=== PATIENT | female | born 1950 | race Caucasian/White ===

== ENCOUNTER → 2019-12-08 | Outpatient (CLI) | payer MEDICARE | END | disposition home or self-care (01) | LOC: RAH 08:34 | PROVIDERS: ATTEND Orthopaedic Surgery | DX: M16.12 Unilateral primary osteoarthritis, left hip (principal) | CPT/HCPCS: 73721 ==

== ENCOUNTER → 2020-04-28 | Outpatient (CLI) | payer MEDICARE ==
[~2020-04-28] VITALS: Ht 165.1 cm; Wt 98.9 kg
[~2020-04-28] MED LIST: CLINDAMYCIN 900 MG/D5% WATER 50 ML IV SCH
[2020-04-28 11:14] LABS: APPEARANCE,URINE Clear (CLEAR); BILIRUBIN,URINE Negative (NEGATIVE); COLOR,URINE Yellow (YELLOW); GLUCOSE, URINE (UA) Negative (NEGATIVE); KETONES,URINE Negative (NEGATIVE); LEUKOCYTE ESTERASE ,URINE Negative (NEGATIVE); NITRATE,URINE Negative (NEGATIVE); OCCULT BLOOD,URINE Negative (NEGATIVE); PROTEIN,URINE Negative (NEGATIVE); UROBILINOGEN,URINE 0.2 mg/dL (0.2-1.0)
[2020-04-28 11:19] LABS: CREATININE 0.8 mg/dL (0.5-1.5); EOSINOPHILS % (AUTO) 6.3 % (0.0-8.0); HEMATOCRIT 40.5 % (36-48); LYMPHOCYTES % (AUTO) 33.4 % (21.0-51.0); MEAN CORPUSCULAR HEMOGLOBIN 27.9 pg (27.0-33.0); MEAN CORPUSCULAR HGB CONC 31.6 g/dL (32.0-36.0); MEAN CORPUSCULAR VOLUME 88.4 fL (79-99); MONOCYTES % (AUTO) 8.6 % (3.0-13.0); NEUTROPHILS % (AUTO) 50.7 % (40.0-77.0); PLATELET COUNT (AUTO) 205 K/uL (130-400); POTASSIUM 4.4 mmol/L (3.5-5.1); RED BLOOD CELL COUNT(AUTO) 4.58 MIL/uL (4.00-5.50); RED CELL DISTRIBUTION WIDTH 13.6 % (11.0-15.5)
[2020-04-28 12:28] LABS: BASOPHILS % (MANUAL) 2 % (0-2); EOSINOPHILS % (MANUAL) 7 % (1-6); LYMPHOCYTES % (MANUAL) 28 % (22-44); MAN.DIFF COMMENT-IMPRESSION MANUAL DIFFERENTIAL; MONOCYTES % (MANUAL) 6 % (2-9); REACTIVE LYMPHOCYTES 2 % (0-0); SEGMENTED NEUTROPHILS % 55 % (40-70)
[2020-04-28 12:29] LABS: PLATELET MORPHOLOGY COMMENT ADEQUATE
[2020-04-28 12:43] LABS: INR 0.96 (0.85-1.15); PROTHROMBIN TIME 10.4 SEC (9.6-11.6)
[2020-05-01 13:52] VITALS: BP 139/76
--- NOTE | 2020-05-04 14:19 | NUR ---
PER PT, PROCEDURE IS RESCHEDULED DUE TO PT HAVING HYPERTENSIVE CRISIS. PT SAW INSECTICIDE SPRAYER AND IS SCHEDULED FOR STRESS TEST TOMORROW. LÁZAR[employer] RESEARCH COORDINATOR MADE AWARE.
== END | disposition home or self-care (01) ==
LOC: DAH 10:00 → EDSTATUS 13:00
PROVIDERS: ATTEND Orthopaedic Surgery
DX: Z01.812 Encounter for preprocedural laboratory examination (principal); Z20.828 Contact with and (suspected) exposure to other viral communicable diseases; M16.12 Unilateral primary osteoarthritis, left hip; M25.552 Pain in left hip; K76.0 Fatty (change of) liver, not elsewhere classified
CPT/HCPCS: 36415; 80048; 81003; 85025; 85610; 87641; U0003